=== PATIENT | male | born 1960 | race Caucasian/White ===

== ENCOUNTER 2022-04-24 07:44 | Inpatient (IN) | payer OTHER ==
[~2022-04-24] VITALS: Ht 172.7 cm; Wt 72.7 kg
[2022-04-24] MEDS ORDERED: SODIUM CHLORIDE 0.9% 1,000 ML IV ONE ×2 (10:00→14:00)
[2022-04-24 10:33] LABS: BASOPHILS % (AUTO) 0.3 % (0.0-2.0); EOSINOPHILS % (AUTO) 0.3 % (1.0-6.0); HEMATOCRIT 35.4 % (41-53); LYMPHOCYTES # (AUTO) 1.2 K/uL (1.0-4.8); LYMPHOCYTES % (AUTO) 11.2 % (22.0-44.0); MEAN CORPUSCULAR HEMOGLOBIN 28.3 pg (26.0-34.0); MEAN CORPUSCULAR VOLUME 83 fL (80-100); MONOCYTES # (AUTO) 0.4 K/uL (0.1-1.0); MONOCYTES % (AUTO) 4.1 % (2.0-9.0); NEUTROPHILS # (AUTO) 8.7 K/uL (1.8-7.7); NEUTROPHILS % (AUTO) 84.1 % (40.0-70.0); PLATELET COUNT (AUTO) 662 K/uL (150-450); RED BLOOD CELL COUNT(AUTO) 4.25 MIL/uL (4.50-5.90); RED CELL DISTRIBUTION WIDTH 14.8 % (11.5-14.5)
[2022-04-24 10:40] LABS: CALCIUM, TOTAL 9.7 mg/dL (8.8-10.5); CARBON DIOXIDE 24 mmol/L (22-29); CHLORIDE 100 mmol/L (98-107); CREATININE 1.07 mg/dL (0.60-1.30); GLUCOSE,RANDOM 110 mg/dL (70-110); POTASSIUM 3.6 mmol/L (3.5-5.1); UREA NITROGEN, BLOOD 14 mg/dL (7-18)
[2022-04-24 10:45] LABS: AMPHET/METH SCREEN,URINE NEGATIVE (NEGATIVE); BARBITURATE SCREEN, URINE NEGATIVE (NEGATIVE); BENZODIAZEPINES SCREEN,URINE NEGATIVE (NEGATIVE); CANNABINOID SCREEN,URINE NEGATIVE (NEGATIVE); COCAINE SCREEN,URINE NEGATIVE (NEGATIVE); METHADONE SCREEN, URINE NEGATIVE (NEGATIVE); OPIATE SCREEN,URINE NEGATIVE (NEGATIVE); PHENCYCLIDINE SCREEN,URINE NEGATIVE (NEGATIVE)
[2022-04-24] MEDS ORDERED: DIAZEPAM 5 MG/ML 2 ML SYRINGE IVP ONE (10:45)
[2022-04-24] MEDS ORDERED: BUPRENORPHINE HCL/NALOXONE HCL 8-2 MG SUBLINGUAL TABLET SL ONE (10:45)
[2022-04-24 10:47] LABS: ALANINE AMINOTRANSFERASE 26 U/L (12-78); ALBUMIN 3.8 g/dL (3.4-5.0); ALKALINE PHOSPHATASE 131 U/L (46-116); ASPARTATE AMINOTRANSFERASE 31 U/L (15-37); BILIRUBIN,TOTAL 1.1 mg/dL (0.1-1.0); TOTAL PROTEIN, SERUM 8.3 g/dL (6.4-8.2)
[2022-04-24 10:51] LABS: ANION GAP 13 mmol/L (8-16); SODIUM SERUM 137 mmol/L (136-145)
[2022-04-24 10:52] LABS: COVID AG,FIA SOURCE NASAL SWAB
[2022-04-24 10:53] LABS: GLOMERULAR FILTR. RATE CALC > 60 mL/min (>60)
[2022-04-24] MEDS ORDERED: ONDANSETRON HCL 4 MG/2 ML VIAL IVP PRN (14:15)
[2022-04-24] MEDS ORDERED: ZOLPIDEM TARTRATE 5 MG TABLET PO PRN (14:15)
[2022-04-24] MEDS: AmLODIPine BESYLATE 5 MG TABLET PO SCH (14:23)
[2022-04-24] MEDS: LORazepam 2 MG/ML VIAL IVP PRN (14:40)
[2022-04-24 16:16] VITALS: BP 142/81
[2022-04-24] MEDS: HEPARIN SODIUM,PORCINE 5,000 UNITS/ML VIAL SQ SCH ×2 (16:34→23:46)
[2022-04-24] MEDS ORDERED: PNEUMOCOCCAL VACCINE POLYVALENT 0.5 ML VIAL [PPSV23] IM. ONE (18:45)
[2022-04-24 20:00] VITALS: BP 159/80
[2022-04-24] MEDS: DOCUSATE SODIUM 100 MG CAPSULE PO SCH (20:16)
[2022-04-24] MEDS: FAMOTIDINE 20 MG TABLET PO SCH (20:16)
[2022-04-25] VITALS: BP 148/89
[2022-04-25] MEDS: ACETAMINOPHEN 325 MG TABLET PO PRN ×2 (01:50→16:03)
[2022-04-25] MEDS: LORazepam 2 MG/ML VIAL IVP PRN ×5 (02:07→20:51)
[2022-04-25 04:12] VITALS: BP 130/80
[2022-04-25 08:00] VITALS: BP 148/86
[2022-04-25] MEDS: DOCUSATE SODIUM 100 MG CAPSULE PO SCH ×2 (08:07→20:52)
[2022-04-25] MEDS: HEPARIN SODIUM,PORCINE 5,000 UNITS/ML VIAL SQ SCH ×2 (08:07→16:03)
[2022-04-25] MEDS: AmLODIPine BESYLATE 5 MG TABLET PO SCH (08:07)
[2022-04-25] MEDS: FAMOTIDINE 20 MG TABLET PO SCH ×2 (08:07→20:52)
[2022-04-25] MEDS ORDERED: SODIUM CHLORIDE 0.9% 1,000 ML IV ONE (12:00)
[2022-04-25 16:39] VITALS: BP 144/87
[2022-04-25 19:35] VITALS: BP 123/90
[2022-04-26] MEDS: HEPARIN SODIUM,PORCINE 5,000 UNITS/ML VIAL SQ SCH ×3 (00:54→15:43)
[2022-04-26] MEDS: LORazepam 2 MG/ML VIAL IVP PRN ×2 (03:47→08:52)
[2022-04-26 04:27] VITALS: BP 146/86
[2022-04-26 07:37] VITALS: BP 130/89
[2022-04-26] MEDS: AmLODIPine BESYLATE 5 MG TABLET PO SCH (07:54)
[2022-04-26] MEDS: FAMOTIDINE 20 MG TABLET PO SCH ×2 (07:54→20:44)
[2022-04-26] MEDS: DOCUSATE SODIUM 100 MG CAPSULE PO SCH ×2 (07:54→20:43)
[2022-04-26] MEDS: ACETAMINOPHEN 325 MG TABLET PO PRN ×2 (10:48→20:49)
[2022-04-26 16:30] VITALS: BP 132/84
[2022-04-26 19:55] VITALS: BP 143/86
[2022-04-27] MEDS: ACETAMINOPHEN 325 MG TABLET PO PRN (04:23)
[2022-04-27 05:17] VITALS: BP 152/82
[2022-04-27] MEDS: HEPARIN SODIUM,PORCINE 5,000 UNITS/ML VIAL SQ SCH ×2 (07:43)
[2022-04-27] MEDS: AmLODIPine BESYLATE 5 MG TABLET PO SCH (07:43)
[2022-04-27] MEDS: FAMOTIDINE 20 MG TABLET PO SCH (07:43)
[2022-04-27] MEDS: DOCUSATE SODIUM 100 MG CAPSULE PO SCH (07:44)
[2022-04-27 08:45] VITALS: BP 143/88
[2022-04-27] MEDS ORDERED: METO50 PO (21:09)
[2022-04-27] MEDS ORDERED: NITR0.3T12 SL (21:09)
[2022-04-27] MEDS ORDERED: DIAZ2 PO (21:09)
[2022-04-27] MEDS ORDERED: GABA-1181 PO (21:09)
[2022-04-27] MEDS ORDERED: SIMV-260 PO (21:09)
[2022-04-27] MEDS ORDERED: ATOR20TA86 PO (21:09)
== END 2022-04-27 14:45 | DRG 897 ==
LOC: EMS 07:46 → 6S 15:11
PROVIDERS: ADMIT Internal Medicine; ATTEND Internal Medicine
DX: F11.13 Opioid abuse with withdrawal (principal); D64.9 Anemia, unspecified; Z20.822 Contact with and (suspected) exposure to COVID-19; F17.210 Nicotine dependence, cigarettes, uncomplicated; I10 Essential (primary) hypertension; F32.A Depression, unspecified; F41.9 Anxiety disorder, unspecified
CPT/HCPCS: 80053; 85025; 90732; 99285; J1644; J2060; J2405; J7030

== ENCOUNTER 2022-04-27 18:27 | Inpatient (IN) | payer OTHER ==
[~2022-04-27] VITALS: Ht 167.6 cm; Wt 76.0 kg
[2022-04-27] MEDS ORDERED: GABA-1181 PO (21:09)
[2022-04-27] MEDS ORDERED: METO50 PO (21:09)
[2022-04-27] MEDS ORDERED: ATOR20TA86 PO (21:09)
[2022-04-27] MEDS ORDERED: DIAZ2 PO (21:09)
[2022-04-27] MEDS ORDERED: SIMV-260 PO (21:09)
[2022-04-27] MEDS ORDERED: NITR0.3T12 SL (21:09)
[2022-04-27 21:57] LABS: BASOPHILS % (AUTO) 0.7 % (0.0-2.0); EOSINOPHILS % (AUTO) 0.4 % (1.0-6.0); HEMATOCRIT 36.6 % (41-53); HEMOGLOBIN 12.4 g/dL (13.5-17.5); LYMPHOCYTES # (AUTO) 1.9 K/uL (1.0-4.8); LYMPHOCYTES % (AUTO) 19.2 % (22.0-44.0); MEAN CORPUSCULAR HEMOGLOBIN 28.4 pg (26.0-34.0); MEAN CORPUSCULAR HGB CONC 33.9 G/dL (31.0-37.0); MEAN CORPUSCULAR VOLUME 84 fL (80-100); MONOCYTES # (AUTO) 0.8 K/uL (0.1-1.0); MONOCYTES % (AUTO) 8.2 % (2.0-9.0); NEUTROPHILS # (AUTO) 6.9 K/uL (1.8-7.7); NEUTROPHILS % (AUTO) 71.5 % (40.0-70.0); PLATELET COUNT (AUTO) 689 K/uL (150-450); RED BLOOD CELL COUNT(AUTO) 4.36 MIL/uL (4.50-5.90); RED CELL DISTRIBUTION WIDTH 14.9 % (11.5-14.5)
[2022-04-27] MEDS ORDERED: NITROGLYCERIN 0.3 MG SUBLINGUAL TABLET #100 SL PRN (22:00)
[2022-04-27] MEDS ORDERED: ACETAMINOPHEN 325 MG TABLET PO PRN (22:00)
[2022-04-27] MEDS ORDERED: MAG HYDROX/AL HYDROX/SIMETH ES 30 ML SUSPENSION UDCUP PO PRN (22:00)
[2022-04-27] MEDS ORDERED: ONDANSETRON HCL 4 MG TABLET PO PRN (22:00)
[2022-04-27] MEDS ORDERED: MAGNESIUM HYDROXIDE SUSPENSION 30 ML UDCUP PO PRN (22:00)
[2022-04-27] MEDS ORDERED: PETROLATUM,WHITE 28 GM JELLY TP PRN (22:00)
[2022-04-27] MEDS ORDERED: IBUPROFEN 400 MG TABLET PO PRN (22:00)
[2022-04-27] MEDS ORDERED: CloNIDine HCL 0.1 MG TABLET PO PRN (22:00)
[2022-04-27] MEDS ORDERED: GuaiFENesin/D-METHORPHAN [SUGAR-FREE] 200-20MG/10 ML SYRUP UDCUP PO PRN (22:00)
[2022-04-27] MEDS ORDERED: ALBUTEROL SULFATE HFA 90 MCG/PUFF 8 GM INHALER IH PRN (22:00)
[2022-04-27] MEDS ORDERED: DOCUSATE SODIUM 100 MG CAPSULE PO PRN (22:00)
[2022-04-27 22:09] LABS: ANION GAP 16 mmol/L (8-16); CALCIUM, TOTAL 9.5 mg/dL (8.8-10.5); CARBON DIOXIDE 19 mmol/L (22-29); CHLORIDE 101 mmol/L (98-107); CREATININE 0.93 mg/dL (0.60-1.30); GLOMERULAR FILTR. RATE CALC > 60 mL/min (>60); GLUCOSE,RANDOM 84 mg/dL (70-110); POTASSIUM 3.7 mmol/L (3.5-5.1); SODIUM SERUM 136 mmol/L (136-145); UREA NITROGEN, BLOOD 16 mg/dL (7-18)
[2022-04-27 22:10] LABS: COVID AG,FIA SOURCE NASOPHARYNGEAL
[2022-04-27 22:16] LABS: ALANINE AMINOTRANSFERASE 35 U/L (12-78); ALBUMIN 3.3 g/dL (3.4-5.0); ALKALINE PHOSPHATASE 119 U/L (46-116); ASPARTATE AMINOTRANSFERASE 42 U/L (15-37); BILIRUBIN,TOTAL 0.8 mg/dL (0.1-1.0); TOTAL PROTEIN, SERUM 7.7 g/dL (6.4-8.2)
[2022-04-27] MEDS ORDERED: ASPIRIN 325 MG TABLET PO ONE (22:30)
[2022-04-28 00:01] VITALS: BP 162/91
[2022-04-28 04:14] LABS: EOSINOPHILS % (AUTO) 1.3 % (1.0-6.0); HEMATOCRIT 34.4 % (41-53); HEMOGLOBIN 11.9 g/dL (13.5-17.5); LYMPHOCYTES # (AUTO) 1.9 K/uL (1.0-4.8); LYMPHOCYTES % (AUTO) 25.3 % (22.0-44.0); MEAN CORPUSCULAR HEMOGLOBIN 28.8 pg (26.0-34.0); MEAN CORPUSCULAR HGB CONC 34.5 G/dL (31.0-37.0); MEAN CORPUSCULAR VOLUME 83 fL (80-100); MONOCYTES # (AUTO) 0.6 K/uL (0.1-1.0); MONOCYTES % (AUTO) 7.4 % (2.0-9.0); PLATELET COUNT (AUTO) 523 K/uL (150-450); RED BLOOD CELL COUNT(AUTO) 4.13 MIL/uL (4.50-5.90); RED CELL DISTRIBUTION WIDTH 14.9 % (11.5-14.5)
[2022-04-28 04:50] VITALS: BP 141/89
[2022-04-28 07:28] VITALS: BP 139/89
[2022-04-28] MEDS: METOPROLOL TARTRATE 50 MG TABLET PO SCH (08:40)
[2022-04-28] MEDS: GABAPENTIN 300 MG CAPSULE PO SCH (08:40)
[2022-04-28 12:14] VITALS: BP 125/81
[2022-04-28 16:31] VITALS: BP 132/95
[2022-04-28] MEDS: ATORVASTATIN CALCIUM 20 MG TABLET PO SCH (20:10)
[2022-04-28 20:25] VITALS: BP 125/72
[2022-04-28] MEDS ORDERED: SIMVASTATIN 20 MG TABLET PO SCH (21:00)
[2022-04-28] MEDS ORDERED: ZOLPIDEM TARTRATE 5 MG TABLET PO ONE (21:45)
[2022-04-28] MEDS ORDERED: ASPIRIN 325 MG TABLET PO ONE (21:45)
[2022-04-29 06:31] VITALS: BP 154/89
[2022-04-29 08:00] VITALS: BP 122/73
[2022-04-29] MEDS: METOPROLOL TARTRATE 50 MG TABLET PO SCH ×3 (08:32→22:03)
[2022-04-29] MEDS: GABAPENTIN 300 MG CAPSULE PO SCH (08:32)
[2022-04-29 12:00] VITALS: BP 128/80
[2022-04-29] MEDS: LOPERAMIDE HCL 2 MG CAPSULE PO PRN ×2 (12:37→18:44)
[2022-04-29 15:55] VITALS: BP 126/77
[2022-04-29 19:24] VITALS: BP 126/83
[2022-04-29] MEDS ORDERED: ZOLPIDEM TARTRATE 5 MG TABLET PO PRN (22:00)
[2022-04-29] MEDS: ATORVASTATIN CALCIUM 20 MG TABLET PO SCH (22:03)
[2022-04-30 05:38] VITALS: BP 147/86
[2022-04-30 08:31] VITALS: BP 148/79
[2022-04-30] MEDS: METOPROLOL TARTRATE 50 MG TABLET PO SCH (08:47)
[2022-04-30] MEDS: GABAPENTIN 300 MG CAPSULE PO SCH (08:48)
[2022-04-30] MEDS: LOPERAMIDE HCL 2 MG CAPSULE PO PRN (08:48)
== END 2022-04-30 14:05 | DRG 305 ==
LOC: EMS 18:28 → 5S 04-28 00:57
PROVIDERS: ADMIT Internal Medicine; ATTEND Internal Medicine
DX: I10 Essential (primary) hypertension (principal); F11.23 Opioid dependence with withdrawal; E78.5 Hyperlipidemia, unspecified; Z20.822 Contact with and (suspected) exposure to COVID-19; F32.A Depression, unspecified; F41.9 Anxiety disorder, unspecified; F17.210 Nicotine dependence, cigarettes, uncomplicated; R77.8 Other specified abnormalities of plasma proteins; F19.10 Other psychoactive substance abuse, uncomplicated; X58.XXXA Exposure to other specified factors, initial encounter; S51.001A Unspecified open wound of right elbow, initial encounter; S51.002A Unspecified open wound of left elbow, initial encounter; Z79.899 Other long term (current) drug therapy; Y99.8 Other external cause status; Y93.89 Activity, other specified; Y92.89 Other specified places as the place of occurrence of the external cause
CPT/HCPCS: 80053; 84484; 85025; 93005; 93306; 99285; G0480

== ENCOUNTER 2022-04-30 16:28 | Emergency (ER) | payer OTHER ==
[~2022-04-30 16:28] MED LIST: ATOR20TA86 PO; DIAZ2 PO; GABA-1181 PO; METO50 PO; NITR0.3T12 SL
== END 2022-04-30 20:36 | disposition left against medical advice (07) ==
LOC: EMS 16:36
DX: Z00.00 Encounter for general adult medical examination without abnormal findings (principal); Z53.21 Procedure and treatment not carried out due to patient leaving prior to being seen by health care provider

== ENCOUNTER 2022-08-17 00:43 | Inpatient (IN) | payer OTHER ==
[~2022-08-17] VITALS: Ht 170.2 cm; Wt 77.3 kg
[2022-08-17 03:30] LABS: BASOPHILS % (AUTO) 0.7 % (0.0-2.0); HEMATOCRIT 31.5 % (41-53); HEMOGLOBIN 10.7 g/dL (13.5-17.5); LYMPHOCYTES # (AUTO) 1.3 K/uL (1.0-4.8); LYMPHOCYTES % (AUTO) 21.6 % (22.0-44.0); MEAN CORPUSCULAR HEMOGLOBIN 28.4 pg (26.0-34.0); MEAN CORPUSCULAR HGB CONC 33.9 G/dL (31.0-37.0); MEAN CORPUSCULAR VOLUME 84 fL (80-100); MONOCYTES # (AUTO) 0.4 K/uL (0.1-1.0); MONOCYTES % (AUTO) 6.3 % (2.0-9.0); NEUTROPHILS % (AUTO) 68.4 % (40.0-70.0); PLATELET COUNT (AUTO) 636 K/uL (150-450); RED BLOOD CELL COUNT(AUTO) 3.76 MIL/uL (4.50-5.90); RED CELL DISTRIBUTION WIDTH 14.9 % (11.5-14.5)
[2022-08-17 03:38] LABS: ANION GAP 7 mmol/L (8-16); CALCIUM, TOTAL 9.1 mg/dL (8.8-10.5); CARBON DIOXIDE 28 mmol/L (22-29); CHLORIDE 101 mmol/L (98-107); CREATININE 0.88 mg/dL (0.60-1.30); GLOMERULAR FILTR. RATE CALC > 60 mL/min (>60); GLUCOSE,RANDOM 96 mg/dL (70-110); POTASSIUM 3.6 mmol/L (3.5-5.1); SODIUM SERUM 136 mmol/L (136-145); UREA NITROGEN, BLOOD 14 mg/dL (7-18)
[2022-08-17 03:40] LABS: APPEARANCE,URINE CLEAR (CLEAR); BILIRUBIN,URINE NEGATIVE (NEGATIVE); GLUCOSE, URINE (UA) NEGATIVE (NEGATIVE); LEUKOCYTE ESTERASE ,URINE NEGATIVE (NEGATIVE); NITRATE,URINE NEGATIVE (NEGATIVE); OCCULT BLOOD,URINE NEGATIVE (NEGATIVE); PH,URINE 5.5 (5.0-8.0); PROTEIN,URINE NEGATIVE (NEGATIVE); SPECIFIC GRAVITIY, URINE 1.026 (1.003-1.030); UROBILINOGEN,URINE <=1.0 mg/dL (<=1.0)
[2022-08-17 03:44] LABS: ALANINE AMINOTRANSFERASE 21 U/L (12-78); ALKALINE PHOSPHATASE 155 U/L (46-116); ASPARTATE AMINOTRANSFERASE 22 U/L (15-37); BILIRUBIN,TOTAL 0.5 mg/dL (0.1-1.0); LIPASE 36 U/L (73-393); TOTAL PROTEIN, SERUM 7.2 g/dL (6.4-8.2)
[2022-08-17 09:52] VITALS: BP 148/88
[2022-08-17] MEDS ORDERED: LOPERAMIDE HCL 2 MG CAPSULE PO PRN (13:00)
[2022-08-17] MEDS ORDERED: METOCLOPRAMIDE HCL 5 MG/ML 2 ML VIAL IVP PRN (13:00)
[2022-08-17] MEDS ORDERED: LORazepam 2 MG/ML VIAL IVP PRN (13:00)
[2022-08-17] MEDS ORDERED: ACETAMINOPHEN/CODEINE 300-15 MG TABLET PO PRN (13:00)
[2022-08-17] MEDS: DICYCLOMINE HCL 10 MG CAPSULE PO PRN (13:16)
[2022-08-17 15:16] VITALS: BP 140/84
[2022-08-17] MEDS ORDERED: METOCLOPRAMIDE HCL 5 MG TABLET PO PRN (15:45)
[2022-08-17] MEDS: LORazepam 1 MG TABLET PO PRN (17:00)
[2022-08-17 19:45] VITALS: BP 167/78
[2022-08-17] MEDS: METOPROLOL TARTRATE 25 MG TABLET PO SCH (20:51)
[2022-08-17] MEDS: TEMAZEPAM 15 MG CAPSULE PO SCH (20:51)
[2022-08-17] MEDS: ATORVASTATIN CALCIUM 20 MG TABLET PO SCH (20:51)
[2022-08-18 04:40] VITALS: BP 163/101
[2022-08-18] MEDS: LORazepam 1 MG TABLET PO PRN (06:48)
[2022-08-18 08:07] VITALS: BP 154/93
[2022-08-18] MEDS: METOPROLOL TARTRATE 25 MG TABLET PO SCH ×2 (08:28→20:31)
[2022-08-18] MEDS: GABAPENTIN 300 MG CAPSULE PO SCH (08:28)
[2022-08-18 15:55] VITALS: BP 152/91
[2022-08-18 19:35] VITALS: BP 143/96
[2022-08-18] MEDS: ATORVASTATIN CALCIUM 20 MG TABLET PO SCH (20:31)
[2022-08-18] MEDS: TEMAZEPAM 15 MG CAPSULE PO SCH (20:31)
[2022-08-19] MEDS: CloNIDine HCL 0.1 MG TABLET PO PRN ×2 (00:18→01:59)
[2022-08-19 00:19] VITALS: BP 161/90
[2022-08-19] MEDS: LORazepam 1 MG TABLET PO PRN ×2 (00:19→20:42)
[2022-08-19 05:32] VITALS: BP 140/93
[2022-08-19 07:30] VITALS: BP 148/88
[2022-08-19] MEDS: METOPROLOL TARTRATE 25 MG TABLET PO SCH ×2 (09:23→20:42)
[2022-08-19] MEDS: GABAPENTIN 300 MG CAPSULE PO SCH (09:24)
[2022-08-19] MEDS: CloNIDine HCL 0.1 MG TABLET PO SCH ×4 (09:24→20:42)
[2022-08-19] MEDS ORDERED: SODIUM CHLORIDE 0.9% 1,000 ML IV ONE (11:00)
[2022-08-19] MEDS: LOPERAMIDE HCL 2 MG CAPSULE PO PRN ×2 (14:30→20:42)
[2022-08-19] MEDS: ATORVASTATIN CALCIUM 20 MG TABLET PO SCH (20:42)
[2022-08-19] MEDS: TEMAZEPAM 15 MG CAPSULE PO SCH (20:42)
[2022-08-19] MEDS: DICYCLOMINE HCL 10 MG CAPSULE PO PRN (20:42)
[2022-08-19 20:51] VITALS: BP 141/81
[2022-08-20] MEDS: LOPERAMIDE HCL 2 MG CAPSULE PO PRN ×3 (03:51→18:39)
[2022-08-20] MEDS: DICYCLOMINE HCL 10 MG CAPSULE PO PRN (03:51)
[2022-08-20 04:01] VITALS: BP 140/113
[2022-08-20 07:30] VITALS: BP 125/82
[2022-08-20] MEDS: GABAPENTIN 300 MG CAPSULE PO SCH (09:01)
[2022-08-20] MEDS: METOPROLOL TARTRATE 25 MG TABLET PO SCH ×2 (09:01→20:11)
[2022-08-20] MEDS: CloNIDine HCL 0.1 MG TABLET PO SCH ×4 (09:01→20:10)
[2022-08-20 12:57] VITALS: BP 127/78
[2022-08-20 16:42] VITALS: BP 119/74
[2022-08-20 20:10] VITALS: BP 122/64
[2022-08-20] MEDS: TEMAZEPAM 15 MG CAPSULE PO SCH (20:11)
[2022-08-20] MEDS: ATORVASTATIN CALCIUM 20 MG TABLET PO SCH (20:11)
[2022-08-21 04:47] VITALS: BP 120/69
[2022-08-21 07:58] VITALS: BP 135/73
[2022-08-21] MEDS: CloNIDine HCL 0.1 MG TABLET PO SCH ×4 (08:04→20:02)
[2022-08-21] MEDS: GABAPENTIN 300 MG CAPSULE PO SCH (08:05)
[2022-08-21] MEDS: METOPROLOL TARTRATE 25 MG TABLET PO SCH ×2 (08:10→20:02)
[2022-08-21 14:15] VITALS: BP 109/75
[2022-08-21 15:40] VITALS: BP 105/67
[2022-08-21 19:35] VITALS: BP 124/70
[2022-08-21] MEDS: TEMAZEPAM 15 MG CAPSULE PO SCH (20:02)
[2022-08-21] MEDS: ATORVASTATIN CALCIUM 20 MG TABLET PO SCH (20:02)
[2022-08-21] MEDS: LOPERAMIDE HCL 2 MG CAPSULE PO PRN (20:03)
[2022-08-22 04:00] VITALS: BP 133/78
[2022-08-22 08:05] VITALS: BP 131/76
[2022-08-22] MEDS: CloNIDine HCL 0.1 MG TABLET PO SCH (08:38)
[2022-08-22] MEDS: GABAPENTIN 300 MG CAPSULE PO SCH (08:39)
[2022-08-22] MEDS: METOPROLOL TARTRATE 25 MG TABLET PO SCH (08:39)
[2022-08-22 16:41] VITALS: BP 125/75
[2022-08-22] MEDS ORDERED: CloNIDine HCL 0.1 MG TABLET PO SCH (21:00)
== END 2022-08-22 20:10 | DRG 897 ==
LOC: EMS 00:48 → 6S 07:18
PROVIDERS: ADMIT Internal Medicine; ATTEND Internal Medicine
DX: F11.23 Opioid dependence with withdrawal (principal); I10 Essential (primary) hypertension; F32.A Depression, unspecified; E78.5 Hyperlipidemia, unspecified; E78.00 Pure hypercholesterolemia, unspecified; D64.9 Anemia, unspecified; F41.9 Anxiety disorder, unspecified; Z87.891 Personal history of nicotine dependence; Z79.899 Other long term (current) drug therapy
CPT/HCPCS: 71045; 80053; 81003; 83690; 85025; 85610; 85730; 93005; 97162; 99285; J2060; J2765; 36415-L1; 36415-TC